=== PATIENT | male | born 1935 | race African-American/Black ===

== ENCOUNTER 2018-01-06 12:56 | Emergency (ER) | payer OTHER, SELFPAY ==
[~2018-01-06] VITALS: Ht 162.6 cm; Wt 75.0 kg
[2018-01-06] MEDS ORDERED: PREDNISONE 20MG TABLET PO STA (13:30)
[2018-01-06] MEDS ORDERED: IPRATROPIUM BROMIDE (0.02%) 0.5MG/2.5ML NEB HHN STA (13:30)
[2018-01-06] MEDS ORDERED: ALBUTEROL (0.083%) 2.5MG/3ML NEB HHN STA (13:30)
[2018-01-06] MEDS ORDERED: ALBUTEROL (0.083%) 2.5MG/3ML NEB ONE (13:43)
[2018-01-06] MEDS ORDERED: METHYLPREDNISOLONE SOD SUCC 125 MG/2 ML VIAL IV ONE (13:45)
[2018-01-06] MEDS ORDERED: VANCOMYCIN 1 G PREMIX 200 ML IV ONE (14:15)
[2018-01-06] MEDS ORDERED: PIPERACILLIN/TAZ 3.375G PREMIX 50 ML IV ONE (14:15)
[2018-01-06 14:34] LABS: MEAN CORPUSCULAR HEMOGLOBIN 33.5 pg (28.0-32.0); MEAN CORPUSCULAR VOLUME 101.9 fL (80.0-94.0); MEAN PLATELET VOLUME 7.1 fl (7.4-10.4); PLATELET 438 x1000/uL (130-400); RED BLOOD CELL COUNT 2.04 mill/uL (4.7-6.1); RED CELL DISTRIBUTION WIDTH 19.8 % (11.6-14.6)
[2018-01-06 14:37] LABS: INR 1.2; PROTHROMBIN TIME 12.3 sec (9.1-11.1)
[2018-01-06 14:38] LABS: CHLORIDE 109 mEq/L (98-107)
[2018-01-06 14:40] LABS: HEMATOCRIT. 20.8 % (42.0-52.0); HEMOGLOBIN. 6.8 g/dL (14.0-18.0)
[2018-01-06 15:51] LABS: NUCLEATED RED BLOOD CELLS 35 /100 WBC; PLATELET ESTIMATE INCREASED
[2018-01-06 17:25] VITALS: BP 121/48
== END 2018-01-06 18:24 | disposition short-term general hospital (02) ==
LOC: ER 12:56
DX: I50.9 Heart failure, unspecified (principal); J18.9 Pneumonia, unspecified organism; D64.89 Other specified anemias; C85.90 Non-Hodgkin lymphoma, unspecified, unspecified site; N28.9 Disorder of kidney and ureter, unspecified
CPT/HCPCS: 36415; 71045; 80053; 83880; 84484; 85025; 85610; 86850; 86870; 86900; 86901; 87040; 93005; 94644; 96365; 96366; 96367; 96375; 99285; J2543; J2930; J3370; J7611

== ENCOUNTER 2018-01-14 23:34 | Inpatient (IN) | payer OTHER ==
[~2018-01-14] VITALS: Ht 170.2 cm; Wt 86.2 kg
[2018-01-15 01:25] LABS: CHLORIDE 110 mEq/L (98-107); HEMATOCRIT 28.1 % (42.0-52.0); HEMOGLOBIN 9.7 g/dL (14.0-18.0); MEAN CORPUSCULAR HEMOGLOBIN 33.7 pg (28.0-32.0); MEAN CORPUSCULAR VOLUME 97.9 fL (80.0-94.0); PLATELET 267 x1000/uL (130-400); RED BLOOD CELL COUNT 2.87 mill/uL (4.7-6.1); RED CELL DISTRIBUTION WIDTH 21.5 % (11.6-14.6)
[2018-01-15] MEDS ORDERED: CEFEPIME HCL 2000MG/VIAL INJ IV ONE (02:15)
[2018-01-15] MEDS ORDERED: LEVOFLOXACIN 750MG PREMIX 150 ML IV SCH (03:22)
[2018-01-15] MEDS ORDERED: VANCOMYCIN 1 G PREMIX 200 ML IV SCH (03:23)
[2018-01-15] MEDS ORDERED: SODIUM CHLORIDE 0.9% 1,000 ML IV ONE (03:23)
[2018-01-15] MEDS ORDERED: CEFEPIME 2,000 MG in DEXTROSE 5% WATER 50 ML IV SCH (03:30)
[2018-01-15] MEDS ORDERED: DOCUSATE SODIUM 100MG CAPSULE PO PRN (08:15)
[2018-01-15] MEDS ORDERED: LEVOFLOXACIN 500MG PREMIX 100 ML IV SCH (08:15)
[2018-01-15] MEDS ORDERED: ACETAMINOPHEN 325MG TABLET PO PRN (08:15)
[2018-01-15] MEDS ORDERED: ACETAMINOPHEN 650MG SUPP PR PRN (08:15)
[2018-01-15] MEDS ORDERED: NA PHOS,M-B/NA PHOS,DI-BA ENEMA 118ML PR PRN (08:15)
[2018-01-15] MEDS ORDERED: HYDROCODONE/ACETAMINOPHEN 10/325MG TABLET PO PRN (08:15)
[2018-01-15] MEDS ORDERED: IPRATROPIUM/ALBUTEROL 0.5-3(2.5)MG/3ML NEB INH PRN (08:15)
[2018-01-15] MEDS ORDERED: ENOXAPARIN 40MG/0.4ML SYR SUBCUT SCH (08:15)
[2018-01-15] MEDS ORDERED: ONDANSETRON HCL 4MG/2ML INJ IV PRN (08:15)
[2018-01-15] MEDS ORDERED: DIPHENHYDRAMINE 50MG/ML VIAL IV PRN (08:15)
[2018-01-15] MEDS ORDERED: HYDROCODONE/ACETAMINOPHEN 5/325MG TABLET PO PRN (08:15)
[2018-01-15] MEDS ORDERED: CLONIDINE 0.1MG TABLET PO PRN (08:15)
[2018-01-15] MEDS ORDERED: MAGNESIUM/ALUMINUM HYDROXIDE/SIMETHICONE 30ML UDC PO PRN (08:15)
[2018-01-15] MEDS ORDERED: ACETAMINOPHEN 650MG/20.3ML UDC GT PRN (08:15)
[2018-01-15] MEDS ORDERED: HYDRALAZINE 20MG/ML VIAL IV PRN (08:30)
[2018-01-15 10:20] VITALS: BP 137/42
[2018-01-15 11:20] VITALS: BP_SYST 126; BP_DIAS 62; BP_DIAS 63
[2018-01-15] MEDS: SODIUM CHLORIDE 0.9% 1,000 ML IV SCH (11:21)
[2018-01-15] MEDS: ENOXAPARIN 30MG/0.3ML SYR SUBCUT SCH (11:23)
[2018-01-15] MEDS ORDERED: IPRATROPIUM/ALBUTEROL 0.5-3(2.5)MG/3ML NEB INH SCH (12:00)
[2018-01-15] MEDS ORDERED: BICA50TA7 PO (13:16)
[2018-01-15] MEDS ORDERED: ATEN-42 PO (13:16)
[2018-01-15] MEDS ORDERED: AMLO2.5T45 PO (13:16)
[2018-01-15] MEDS ORDERED: FEBU40TA PO (13:16)
[2018-01-15] MEDS ORDERED: ALBU18HF2 IH (13:18)
[2018-01-15 13:30] VITALS: BP_SYST 132; BP_SYST 134; BP_SYST 147; BP_DIAS 56; BP_DIAS 58; BP_DIAS 64
[2018-01-15] MEDS ORDERED: PRED10TA PO (13:42)
[2018-01-15] MEDS ORDERED: CYAN100086 PO (13:42)
[2018-01-15] MEDS: SODIUM CHLORIDE 0.9% INJ 3ML FLUSH IVF SCH ×2 (14:00→22:10)
[2018-01-15 15:17] LABS: HEMATOCRIT. 27.2 % (42.0-52.0); HEMOGLOBIN. 9.2 g/dL (14.0-18.0); MEAN CORPUSCULAR HEMOGLOBIN 33.8 pg (28.0-32.0); MEAN CORPUSCULAR VOLUME 100.1 fL (80.0-94.0); MEAN PLATELET VOLUME 7.4 fl (7.4-10.4); PLATELET 231 x1000/uL (130-400); RED BLOOD CELL COUNT 2.72 mill/uL (4.7-6.1); RED CELL DISTRIBUTION WIDTH 21.8 % (11.6-14.6)
[2018-01-15 15:32] LABS: CHLORIDE 113 mEq/L (98-107)
[2018-01-15 15:41] LABS: CREATINE KINASE 62 IU/L (39-308)
[2018-01-15 15:42] LABS: CREATINE KINASE MB FRACTION 1.6 ng/mL (0.5-3.6)
[2018-01-15 15:47] LABS: T4 FREE 0.62 ng/dL (0.76-1.46)
[2018-01-15 16:00] VITALS: BP 136/64
[2018-01-15 16:32] LABS: NUCLEATED RED BLOOD CELLS 5 /100 WBC; PLATELET ESTIMATE NORMAL
[2018-01-15] MEDS: METHYLPREDNISOLONE SOD SUCC 40 MG/ML VIAL IV SCH (17:45)
[2018-01-15] MEDS: IPRATROPIUM/ALBUTEROL 0.5-3(2.5)MG/3ML NEB INH SCH (20:47)
[2018-01-15 20:58] LABS: BG BASE EXCESS -5.9 mmol/L (-2.0-2.0); BG CARBOXYHEMOGLOBIN 3.2 % (0.5-1.5); BG DEOXYHEMOGLOBIN 5.4 % (0.0-5.0); BG FRACTION INSPIRED OXYGEN 28; BG HCO3 ACT 20.9 mmol/L (22.0-26.0); BG METHEMOGLOBIN 0.2 % (0.0-1.5); BG OXYGEN SATURATION 94.4 % (92.0-98.5); BG OXYHEMOGLOBIN 91.2 % (94.0-97.0); BG PCO2 46.9 mmHg (35.0-45.0); BG PH 7.267 (7.350-7.450); BG PO2 77.7 mmHg (75.0-100.0); BG SAMPLE SITE LEFT RADIAL; BG TOTAL HEMOGLOBIN 10.5 g/dL (12.0-18.0); BG VENT MODE NASAL CANNULA
[2018-01-15] MEDS ORDERED: LEVOFLOXACIN 250MG PREMIX 50 ML IV SCH (23:30)
[2018-01-16] VITALS: BP 139/58
[2018-01-16] MEDS: SODIUM CHLORIDE 0.9% 1,000 ML IV SCH ×2 (00:18→14:06)
[2018-01-16] MEDS: METHYLPREDNISOLONE SOD SUCC 40 MG/ML VIAL IV SCH ×3 (00:18→16:52)
[2018-01-16] MEDS: IPRATROPIUM/ALBUTEROL 0.5-3(2.5)MG/3ML NEB INH SCH ×5 (01:09→20:30)
[2018-01-16 01:47] LABS: CREATINE KINASE 57 IU/L (39-308); CREATINE KINASE MB FRACTION 1.5 ng/mL (0.5-3.6)
[2018-01-16 04:00] VITALS: BP 102/63
[2018-01-16] MEDS: SODIUM CHLORIDE 0.9% INJ 3ML FLUSH IVF SCH ×2 (06:45→14:00)
[2018-01-16 07:18] LABS: HEMATOCRIT. 26.8 % (42.0-52.0); HEMOGLOBIN. 9.1 g/dL (14.0-18.0); MEAN CORPUSCULAR HEMOGLOBIN 33.5 pg (28.0-32.0); MEAN CORPUSCULAR VOLUME 99.1 fL (80.0-94.0); MEAN PLATELET VOLUME 7.8 fl (7.4-10.4); PLATELET 278 x1000/uL (130-400); RED BLOOD CELL COUNT 2.71 mill/uL (4.7-6.1); RED CELL DISTRIBUTION WIDTH 20.9 % (11.6-14.6)
[2018-01-16 07:37] LABS: CHLORIDE 114 mEq/L (98-107)
[2018-01-16 07:48] LABS: LDL CHOLESTEROL 77 mg/dL (5-100)
[2018-01-16 07:49] LABS: HDL CHOLESTEROL 58 mg/dL (40-59)
[2018-01-16 08:00] VITALS: BP 132/56
[2018-01-16] MEDS: ENOXAPARIN 30MG/0.3ML SYR SUBCUT SCH (08:43)
[2018-01-16 10:46] LABS: NUCLEATED RED BLOOD CELLS 14 /100 WBC
[2018-01-16 10:47] LABS: PLATELET ESTIMATE NORMAL
[2018-01-16 12:00] VITALS: BP 142/68
[2018-01-16 13:35] VITALS: BP_SYST 137; BP_SYST 139; BP_SYST 140; BP_DIAS 55; BP_DIAS 61; BP_DIAS 65
[2018-01-16 16:00] VITALS: BP 146/62
== END 2018-01-16 21:30 | disposition short-term general hospital (02) | DRG 682 ==
LOC: ER 23:34 → 7WST 01-15 02:41 → ENRESERV 01-15 07:23
PROVIDERS: ADMIT Family Medicine; ATTEND Family Medicine
DX: N17.0 Acute kidney failure with tubular necrosis (principal); J18.9 Pneumonia, unspecified organism; C85.90 Non-Hodgkin lymphoma, unspecified, unspecified site; I13.0 Hypertensive heart and chronic kidney disease with heart failure and stage 1 through stage 4 chronic kidney disease, or unspecified chronic kidney disease; J44.0 Chronic obstructive pulmonary disease with (acute) lower respiratory infection; C61 Malignant neoplasm of prostate; M10.9 Gout, unspecified; N18.9 Chronic kidney disease, unspecified; D64.9 Anemia, unspecified; I50.9 Heart failure, unspecified; I27.20 Pulmonary hypertension, unspecified; E80.6 Other disorders of bilirubin metabolism; J44.9 Chronic obstructive pulmonary disease, unspecified; Z87.891 Personal history of nicotine dependence; Z88.8 Allergy status to other drugs, medicaments and biological substances; Z79.899 Other long term (current) drug therapy; Z92.21 Personal history of antineoplastic chemotherapy
CPT/HCPCS: 36415; 36600; 71045; 76770; 78582; 80048; 80053; 80061; 82375; 82550; 82553; 82805; 83036; 83880; 84439; 84443; 84484; 85025; 85027; 85379; 86850; 86870; 86900; 93005; 93306; 93970; 93971; 94640; 96365; 96366; 96368; 99285; A9558; J0692; J1650; J1956; J2920; J3370; J7030; J7060; J7620